=== PATIENT | male | born 2000 | race Two or more races ===

== ENCOUNTER 2024-12-03 21:10 | Emergency (ER) | payer MEDICAID, SELFPAY ==
[2024-12-03 21:12] VITALS: BMI 26.6
[2024-12-03 21:20] VITALS: BP 114/73; PULSE 110; RESP 18; TEMP 38.3; O2SAT 97
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
[2024-12-03] MEDS: BENZOCAINE 20% (Hurricaine) SPRAY 1 DOSE TOP (22:47)
[2024-12-03] MEDS: DEXAMETHASONE SOD PHOS INJ 4 MG/ML VIAL 10 MG IV (22:47)
[2024-12-03] MEDS: cefTRIAXone/D5w 1gm IV premix 1 GM/50 ML BAG IV (22:47)
[2024-12-03] MEDS: CLINDAMYCIN/NS 600 MG IVPB 600 MG/50 ML BAG 100 MG IV (23:05)
[2024-12-03 23:43] VITALS: BP 115/51; PULSE 98; RESP 18; O2SAT 96
== END 2024-12-03 23:44 | disposition home or self-care (01) ==
LOC: SERX 23:41
PROVIDERS: Emergency Provider Emergency Medicine
DX: J36 Peritonsillar abscess (principal)
CPT/HCPCS: 96365; 96367; 99284; J0696; J1100; S0077; A9270; J0737